=== PATIENT | female | born 1965 | race Caucasian/White ===

== ENCOUNTER → 2021-07-30 | Outpatient (CLI) | payer BC ==
--- NOTE | 2021-07-31 06:00 | MR ---
EXAMINATION TYPE: MR shoulder LT wo con DATE OF EXAM: 07/30/2021 COMPARISON: None HISTORY: L shoulder pain Multiplanar multiecho imaging of the left shoulder with no contrast. The biceps tendon is intact. Subscapularis tendon is intact. Glenoid kayley appear intact. The glenohu meral joint is anatomic. There is small amount of fluid in the subdeltoid bursa. There is some mild e ej in the supraspinatus tendon near the attachment on the greater tuberosity. There is no retractio n. Humeral head is intact. I see no focal bone destruction. IMPRESSION: No evidence of full-thickness rotator cuff tear. There is some mild increased signal in the tendon at the attachment consistent with partial tear and tendinitis. Mild subdeltoid fluid consistent with bu rsitis.
== END | disposition home or self-care (01) ==
LOC: RADMRIMAIN 12:45
PROVIDERS: ATTEND Orthopaedic Surgery
DX: M25.512 Pain in left shoulder (principal)

== ENCOUNTER → 2021-10-21 | Outpatient (CLI) | payer BC ==
[2021-10-21 17:19] LABS: Basophils % (A) 1 %; Eosinophils # (A) 0.1 k/uL (0-0.7); Eosinophils % (A) 1 %; HCT 35.2 % (34.0-46.0); HGB 11.3 gm/dL (11.4-16.0); Lymphocytes # (A) 1.5 k/uL (1.0-4.8); Lymphocytes % (A) 20 %; MCH 29.8 pg (25.0-35.0); MCHC 32.1 g/dL (31.0-37.0); MCV 92.9 fL (80.0-100.0); Mean Platelet Volume 7.2; Monocytes # (A) 0.3 k/uL (0-1.0); Monocytes % (A) 4 %; Neutrophils # (A) 5.7 k/uL (1.3-7.7); Neutrophils % (A) 73 %; Platelet Count 285 k/uL (150-450); RBC 3.79 m/uL (3.80-5.40); WBC 7.8 k/uL (3.8-10.6)
[2021-10-21 17:29] LABS: Potassium 4.6 mmol/L (3.5-5.1)
== END | disposition home or self-care (01) ==
LOC: LABPAT 14:46
PROVIDERS: ATTEND Orthopaedic Surgery
DX: Z01.818 Encounter for other preprocedural examination (principal)
CPT/HCPCS: 36415; 80051; 85025; 93005

== ENCOUNTER 2021-10-23 05:59 | Day surgery (SDC) | payer BC ==
[2021-10-22 11:58] VITALS: BMI 22.2
--- NOTE | 2021-10-22 19:56 | HP ---
HISTORY AND PHYSICAL DATE OF SURGERY: 10/23/2021 Bianka Griffith is a 56-year-old patient seen with progressive left shoulder pain. We discussed options for treatment. She elected to proceed with arthroscopy. Consent was obtained. PAST MEDICAL HISTORY: Noncontributory. PAST SURGICAL HISTORY: Noncontributory. DAILY MEDICATIONS: None. ALLERGIES: NONE REPORTED. SOCIAL HISTORY: She denies current tobacco use. PHYSICAL EVALUATION OF THE LEFT SHOULDER: Flexion is 90 degrees, abduction is 50 degrees. External rotation is 40 degrees with pain and significant weakness. Tenderness along the anterolateral acromion and rotator cuff insertion. Impingement positive at 80. Drop-arm sign is positive. Cross-body adduction sign is positive. Distal neurovascular exam intact. Left shoulder radiographs revealed a type 3 acromion as well as a lateral downsloping acromion. MRI left shoulder revealed partial rotator cuff tear. IMPRESSION: Left shoulder impingement and partial rotator cuff tear. PLAN: Left shoulder arthroscopy with subacromial decompression, possible arthroscopic rotator cuff repair and debridement. MMODL / IJN: [id number] /
[~2021-10-23 05:59] MED LIST: DEXAMETHASONE SOD PHOSPHATE 4 MG/ML 1 ML VIAL IV ONE; LACTATED RINGERS 1,000 ML IV SCH; LIDOCAINE 1% (10MG/ML) FOR IV START INTRADERMA PRN; MIDAZOLAM 2 MG/2 ML VIAL IV PRN; ONDANSETRON 4 MG/2 ML VIAL IVP ONE
[2021-10-23 06:37] LABS: Glucose,Whole Blood 93 mg/dL (75-99)
[2021-10-23] MEDS ORDERED: HYDROmorphone 0.5 MG/0.5 ML SYRINGE IVP PRN (07:00)
[2021-10-23] MEDS ORDERED: MIDAZOLAM 2 MG/2 ML VIAL IVP ONE (07:01)
[2021-10-23] MEDS ORDERED: fentaNYL (PF) 50 MCG/ML 5 ML AMP IVP ONE (07:10)
[2021-10-23] MEDS ORDERED: SUCCINYLCHOLINE CHLORIDE 100 MG/5 ML SYR IV ONE (08:08)
[2021-10-23] MEDS ORDERED: LIDOCAINE 1% INJ 10MG/ML (20 ML MDV) ONE (08:08)
[2021-10-23] MEDS ORDERED: ePHEDrine 50 MG/ML 1 ML AMP ONE (08:08)
[2021-10-23] MEDS ORDERED: PHENYLEPHRINE-0.9% NACL SYG 1,000 MCG/10 ML SYRINGE ONE (08:08)
[2021-10-23] MEDS ORDERED: ROPIVACAINE 5 MG/ML 30 ML VIAL ONE (08:08)
[2021-10-23] MEDS ORDERED: MIDAZOLAM 2 MG/2 ML VIAL ONE (08:08)
[2021-10-23] MEDS ORDERED: PROPOFOL 10 MG/ML 20 ML VIAL IV ONE (08:08)
[2021-10-23] MEDS ORDERED: DEXAMETHASONE SOD PHOSPHATE 4 MG/ML 1 ML VIAL ONE (08:08)
[2021-10-23] MEDS ORDERED: .fentaNYL (PF) 50 MCG/ML 2 ML AMP ONE (08:08)
[2021-10-23] MEDS ORDERED: LACTATED RINGERS 1,000 ML IV ONE (09:22)
--- NOTE | 2021-10-23 09:38 | P.OP ---
Date of Procedure: 10/23/21 Preoperative Diagnosis: Left shoulder impingement Postoperative Diagnosis: 1. Left shoulder rotator cuff tear 2. Left shoulder impingement Procedure(s) Performed: 1. Left shoulder arthroscopic rotator cuff repair 2. Left shoulder arthroscopic subacromial decompression Implants: 15.5 Arthrex swivel lock anchor Anesthesia: GETA, regional (Interscalene block), local Surgeon: Alec Russ Coater Smoking Pipe #1: Keven Rivera Estimated Blood Loss (ml): 8 Pathology: none sent Condition: stable Disposition: PACU Indications for Procedure: 56-year-old patient seen with progressive left shoulder pain. After having treatment options discussed, she elected to proceed with arthroscopy. Operative Findings: See description of procedure Description of Procedure: Patient underwent an interscalene block by department of anesthesia. The patient was then taken to the operative suite. The patient underwent a general anesthetic by the department of anesthesia. The patient was placed into a lateral position and secured. There was appropriate padding of the bony prominence. Left shoulder was then prepped and draped in normal sterile orthopedic fashion. We placed the extremity in 10 pounds of longitudinal traction. A posterior incision was now made for a posterior working portal site. The trocar and cannula were inserted into the glenohumeral joint. Arthroscopy was initiated. Spinal needle was now inserted anteriorly, to ascertain the anterior working portal site. An incision was now made in that area, a trocar was inserted followed by a probe. There were some mild grade 1 chondromalacia changes of the glenohumeral joint. The labrum was probed and found to be stable. The biceps was stable. Instruments were now removed from glenohumeral joint. Utilizing the posterior working portal site, the trocar and cannula were inserted into the subacromial space. Arthroscopy initiated. I made an incision 2 fingerbreadths lateral to the acromion. I introduced my trocar followed by my ArthroCare ablator. I now began ablating thick subacromial bursal tissue, which exposed the undersurface of the anterior acromion. There was diminished subacromial space. There was a very prominent anterior acromion. A motorized bur was introduced and a subacromial decompression was performed. I also excised some osteophytes off the inferior aspect of the distal clavicle. The AC joint was visualized and noted to be moderately arthritic, not enough to warrant a Jordan procedure. I turned my attention to the rotator cuff. There was a 1 cm tear along the posterior aspect of the distal supraspinatus. I debrided the margins getting down to stable tendon tissue. The defect measured 1.5 cm. I abraded the footprint with a motorized bur. With the assistance of Keven GTZ I passed 3 everted mattress sutures through good bites of rotator cuff tendon. I punched a hole in the footprint for insertion of an anchor. All 6 limbs of suture were passed through the eyelet of a 5.5 Arthrex swivel lock anchor. I now placed the eyelet into the pre-punch hole. I held it in position while Keven GTZ tension all suture limbs and deployed the anchor with good fixation noted. All residual suture limbs were now clipped. We had good compression of the tendon along the entire footprint. Instruments now removed from the portal sites. All portal sites were approximated with nylon suture. Sterile dressings were applied followed by a shoulder sling. Keven GTZ assisted in this case. The patient was awakened, transferred to a bed, and taken to recovery in stable condition.
[2021-10-23 09:44] VITALS: TEMP 96.8
[2021-10-23 09:49] LABS: Glucose,Whole Blood 125 mg/dL (75-99)
[2021-10-23 10:52] VITALS: RESP 16
[2021-10-23 11:08] VITALS: BP 111/72; PULSE 68
--- NOTE | 2021-10-24 18:51 | P.ANPRN ---
Procedure Note - Anesthesia - Nerve Block Performed Left Interscalene Single Time Out Performed: Yes Date of Procedure: 10/23/21 Procedure Start Time: 07:00 Procedure Stop Time: 07:11 Location of Patient: PreOp Indication: Acute Post-Operative Pain, Requested by Surgeon Sedation Type: Sedate with meaningful contact maintained Preparation: Sterile Prep Position: Supine Needle Types: Pajunk Needle Gauge: 21 Ultrasound used to visualize needle placement: Yes Ultrasound used to observe medication spread: Yes Blood Aspirated: No Pain Paresthesia on Injection Noted: No Resistance on Injection: Normal Image Stored and Saved: Yes Events: Uneventful and Well Tolerated (ropi ,5% 20cc plus dexamethasone 4mg)
== END 2021-10-23 11:27 | disposition home or self-care (01) ==
LOC: OR 05:59
PROVIDERS: ATTEND Orthopaedic Surgery
DX: M75.102 Unspecified rotator cuff tear or rupture of left shoulder, not specified as traumatic (principal); K21.9 Gastro-esophageal reflux disease without esophagitis; Z79.84 Long term (current) use of oral hypoglycemic drugs; Z79.899 Other long term (current) drug therapy; E11.9 Type 2 diabetes mellitus without complications
CPT/HCPCS: 64415; 76942; 29827; 29826; C1713; J2250; J1100; J0690; J2405; J2001; J3010 ×2; J2795; J2370; J0330; J2704

== ENCOUNTER → 2022-02-12 | Outpatient (CLI) | payer BC ==
--- NOTE | 2022-02-12 13:55 | EEG ---
ELECTROENCEPHALOGRAM REPORT DATE OF SERVICE: 02/12/2022. CLINICAL HISTORY: This is a 57-year-old woman with reported syncopal episodes. The video EEG was obtained to evaluate for seizure epileptiform activity. EEG TYPE: A routine 21-channel EEG was performed with video using the 10/20 electrode placement system. Relevant medication: Gabapentin, tempazepam, according to the medical record. DESCRIPTION: Wakefulness was only obtained. During awake state the posterior-dominant rhythm consists of low to moderate voltage of 8 to 8.5 hertz activity that was well modulated and well sustained. There was no physiological sleep architecture seen. There was no focal slowing. Interictal and ictal: None. ACTIVATION PROCEDURE: Photic stimulation did not evoke a posterior driving response. There was no abnormality during the photic stimulation. Hyperventilation was not performed. CLINICAL INTERPRETATION: This was a normal routine EEG. There was no focal slowing, epileptiform discharges or seizure on the EEG. Clinical correlation is recommended. If there continues to be any concern for seizures, recommend ambulatory EEG (2.5 hour EEG). MMAMA / DAVIDN: [id number] / ETHAN
== END ==
LOC: NEUROMAIN 10:00
PROVIDERS: ATTEND Family Medicine
DX: R55 Syncope and collapse (principal); R53.83 Other fatigue; R53.1 Weakness
CPT/HCPCS: 95816

== ENCOUNTER → 2022-03-20 | Outpatient (CLI) | payer BC ==
--- NOTE | 2022-03-20 12:46 | CONS ---
CONSULTATION DATE OF SERVICE: 03/20/2022 57-year-old lady has been evaluated in [facility] for excessive daytime sleepiness and multiple awakenings from sleep with occasional snoring. HISTORY OF PRESENT ILLNESS SLEEP-WAKE EVALUATION: SLEEP SCHEDULE: Patient's usual sleep schedule from midnight until 9 a.m. FALLING ASLEEP: No problems with falling asleep. No TV in bedroom. DURING SLEEP: The patient wakes up from sleep 3 times with one episode of nocturia. According to her , she snores. No witnessed episodes of stopped breathing during sleep. Positive history of restless leg symptoms. The patient is seeing significant amount of dreams and sometimes started to see dreams right after falling asleep. DURING THE DAY/SLEEP WAKE EVALUATION: Usually she does not take any naps but feel sleepiness during the day. [place] Sleepiness Scale is 12. According to patient, she feels sleepiness for many years. PAST MEDICAL HISTORY: Positive for episodes of passing out. Usually it is not reacted to strong emotions. The patient does not lose consciousness. No clear falling blood pressure during these episodes. History of depression, anxiety, acid reflex. PAST SURGICAL HISTORY: Tonsillectomy. MEDICATIONS: Omeprazole 40 mg twice a day, topiramate 50 mg twice a day, duloxetine 30 mg 3 capsules a day, risperidone 1 tablet a day, metformin 500 mg once a day. Temazepam 30 mg once a day. Trazodone 150 mg once a day. Gabapentin 800 mg 4 times a day. FAMILY HISTORY: Asthma, hypertension, cancer, mental illness. REVIEW OF SYSTEMS: Multiple awakenings from sleep, sleepiness during the day. PHYSICAL EXAMINATION: GENERAL: lady without distress. BP 102/65, HR 79, RR 14, height 5 feet 8-1/4 inches, weight 164.6 pounds, body mass index 24.7, temperature 97.3, oxygen saturation at room air 97%. Oropharynx: Low position of soft palate, Mallampati 3-4. NECK: 14-1/2 inches in circumference. Neck: Supple, no JVD. Thyroid is not palpable. LUNGS: Clear to percussion and to auscultation. Good air exchange. No wheezing or rhonchi. HEART: S1, S2 regular. No murmurs, gallops, or rubs. ABDOMEN: Soft and nontender. Bowel sounds are present. No organomegaly appreciated. EXTREMITIES: No clubbing or cyanosis. SUPPLY CHAIN SPECIALIST: Awake, alert, and oriented X3. Cranial nerves 2 to 7 intact. There is no fasciculation or atrophy. noted. No focal deficits observed. IMPRESSION: 1. Snoring, multiple awakenings from sleep, low position of soft palate, sleepiness during the day. [place] Sleepiness Scale is 12. Possible obstructive sleep apnea- hypopnea syndrome. 2. Sleepiness and tiredness, although patient does not take any naps. [place] Sleepiness Scale increased to 12. Episodes of passing out which is not clearly related to the strong emotions although the differential diagnosis should include hypersomnia and narcolepsy. The patient complains from sleepiness for many years. Episodes of passing out may represent cataplexy episodes, but again no relationship with strong emotions. 3. History of depression. 4. History of anxiety. 5. Acid reflux. 6. Status post tonsillectomy. PLAN: 1. Polysomnography for evaluation of patient breathing during sleep to check for possible periodic limb movements. 2. Following plan after reviewing results of sleep study. If she will be positive for obstructive sleep apnea, then we will treat obstructive sleep apnea-hypopnea syndrome. If she will be negative, we will consider multiple sleep latency test for objective evaluation of her symptoms of excessive daytime sleepiness. 3. No driving if feeling sleepiness. 4. Sleep hygiene with regular time in bed for at least 7.5 hours. Thank you very much for referring this patient for consultation. Sincerely, Kingsley Trejo MD, PhD, FAASM Diplomat of [place] [employer] Sleep Medicine Board of [place] [employer] Food Assembler [facility] [place] MMODL / DAVIDN: [id number] /
== END ==
LOC: SLEEP 11:29
PROVIDERS: ATTEND Internal Medicine
DX: R40.0 Somnolence (principal); R06.83 Snoring; F32.A Depression, unspecified; F41.9 Anxiety disorder, unspecified; Z90.09 Acquired absence of other part of head and neck
CPT/HCPCS: 99211

== ENCOUNTER → 2024-10-17 | Outpatient (CLI) | payer BC ==
--- NOTE | 2024-10-17 14:57 | MR ---
EXAMINATION TYPE: MR shoulder RT wo con DATE OF EXAM: 10/17/2024 11:46 AM COMPARISON: None. CLINICAL INDICATION: Female, 59 years old with history of M25.511 R shoulder pain, Rt shoulder pain IV Contrast: cc (None if empty) TECHNIQUE: Multiplanar, multisequence imaging of the right shoulder is performed without contrast. FINDINGS: There is mild osteoarthritic change of the AC joint. There is a small subacromial spur resulting in m ild shoulder impingement. There is diffuse abnormal signal intensity within the supraspinatus tendon consistent with marked ten dinosis and multiple intrasubstance tears. There is a tear extending to the inferior surface of the t endon. There is no retraction of the musculotendinous junction. The infraspinatus and subscapularis tendons are intact. There is diffuse abnormal signal intensity within the superior cartilaginous labrum consistent with a SLAP injury. This biceps anchor is intact. Biceps tendon is normal in signal intensity and position within the bicipital groove. There is a small glenohumeral joint effusion. There is mild subdeltoid and subacromial bursitis. IMPRESSION: 1. Rotator cuff tears and tendinosis involving the supraspinatus tendon without retraction. 2 SLAP injury involving the superior cartilaginous labrum. 3. Small glenohumeral joint effusion. 4. mild shoulder impingement as described above. 5. Mild subacromial and subdeltoid bursitis. [facility], , 10/17/2024 2:55 PM
== END | disposition home or self-care (01) ==
LOC: RADMRIMAIN 11:14
PROVIDERS: ATTEND Orthopaedic Surgery
DX: M19.011 Primary osteoarthritis, right shoulder (principal); M67.813 Other specified disorders of tendon, right shoulder; M25.411 Effusion, right shoulder; M25.811 Other specified joint disorders, right shoulder; M75.51 Bursitis of right shoulder

== ENCOUNTER 2024-12-21 05:38 | Day surgery (SDC) | payer BC ==
[2024-12-15 10:17] VITALS: BMI 22.8
--- NOTE | 2024-12-20 23:17 | HP ---
HISTORY AND PHYSICAL Her surgery is scheduled for 12/21/2024. HISTORY OF PRESENT ILLNESS: Bianka Griffith is a 59-year-old patient, seen with progressive right shoulder pain. We discussed options. She elected to proceed with arthroscopy. Consents obtained. Preoperative medical clearance was provided by Dr. Rico. PAST MEDICAL HISTORY: Hypertension, anc-vvtpbbp-oezwnphow diabetes, and gastroesophageal reflux disease. PAST SURGICAL HISTORY: Left shoulder arthroscopy. DAILY MEDICATIONS: 1. Omeprazole. 2. Restoril. 3. Neurontin. 4. Trazodone. 5. Metformin. ALLERGIES: None reported. SOCIAL HISTORY: She denies tobacco use. PHYSICAL EVALUATION OF THE RIGHT SHOULDER: Flexion is 100 degrees. Abduction is 70 degrees. External rotation is 30 degrees with pain and weakness. She has tenderness along the anterolateral acromion rotator cuff insertion site. Impingement sign is positive 90 degrees. Cross-body adduction sign is positive. Drop-arm sign is positive. Distal neurovascular exam is intact. IMAGING STUDIES: Right shoulder radiographs revealed a type 2 acromion, acromioclavicular joint osteoarthritis, cystic changes of the greater tuberosity. MRI right shoulder revealed rotator cuff tear, SLAP tear, impingement. IMPRESSION: 1. Right shoulder impingement with rotator cuff tear. 2. Right shoulder acromioclavicular joint osteoarthritis. 3. Right shoulder labral tear. 4. Lmr-uimrpep-mxxsclvut diabetes. PLAN: Right shoulder arthroscopy with subacromial decompression, rotator cuff repair, Jordan procedure, labeled debridement versus repair. MMODL / IJN: [id number] /
[~2024-12-21 05:38] MED LIST changes: +HYDROmorphone 0.5 MG/0.5 ML SYRINGE IVP PRN; -LIDOCAINE 1% (10MG/ML) FOR IV START INTRADERMA PRN; -MIDAZOLAM 2 MG/2 ML VIAL IV PRN; +fentaNYL (PF) 50 MCG/ML 2 ML AMP IV PRN
[2024-12-21] MEDS: IV FLUID CONTINUATION 1,000 ML IV ONE (06:45)
[2024-12-21] MEDS: MIDAZOLAM 2 MG/2 ML VIAL IVP ONE (06:54)
[2024-12-21 06:58] LABS: Glucose,Whole Blood 78 mg/dL (70-110)
[2024-12-21] MEDS: ONDANSETRON 4 MG/2 ML VIAL IVP ONE (07:00)
[2024-12-21] MEDS: DEXAMETHASONE SOD PHOSPHATE 4 MG/ML 1 ML VIAL IVP ONE (07:00)
[2024-12-21] MEDS ORDERED: ROPIVACAINE 5 MG/ML 30 ML VIAL ONE (07:21)
[2024-12-21] MEDS ORDERED: fentaNYL (PF) 50 MCG/ML 2 ML AMP ONE (07:21)
[2024-12-21] MEDS ORDERED: DEXAMETHASONE SOD PHOSPHATE 4 MG/ML 1 ML VIAL ONE (07:21)
[2024-12-21] MEDS ORDERED: LIDOCAINE 1% INJ 10MG/ML (20 ML MDV) ONE (07:21)
[2024-12-21] MEDS ORDERED: PROPOFOL 10 MG/ML 20 ML VIAL IV ONE (07:21)
[2024-12-21] MEDS ORDERED: MIDAZOLAM 2 MG/2 ML VIAL ONE (07:21)
[2024-12-21] MEDS ORDERED: SUCCINYLCHOLINE CHLORIDE 200 MG/10 ML VIAL IV ONE (07:21)
[2024-12-21 09:00] VITALS: RESP 16; TEMP 97
--- NOTE | 2024-12-21 09:03 | P.OP ---
Date of Procedure: 12/21/24 Preoperative Diagnosis: Right shoulder impingement Postoperative Diagnosis: 1. Right shoulder impingement 2. Right shoulder rotator cuff tear 3. Right shoulder partial long head biceps tendon tear 4. Right shoulder acromioclavicular joint osteoarthritis 5. Right shoulder superficial superior labral tear Procedure(s) Performed: 1. Right shoulder arthroscopic rotator cuff repair 2. Right shoulder arthroscopic subacromial decompression 3. Right shoulder arthroscopic biceps tenodesis 4. Right shoulder arthroscopic Jordan procedure 5. Right shoulder arthroscopic debridement labral tear Implants: 1Arthrex 4.75 swivel lock anchor 1Arthrex 5.5 swivel lock anchor Anesthesia: GETA, regional (Interscalene block) Surgeon: Alec Russ Turn Machine Operator #1: Carlos Salinas Estimated Blood Loss (ml): 7 Pathology: none sent Condition: stable Disposition: PACU Indications for Procedure: 59-year-old patient seen with progressive right shoulder pain. After having treatment options discussed, she elected to proceed with arthroscopy. Operative Findings: See description of procedure Description of Procedure: Patient underwent an interscalene block by department of anesthesia. The patient was then taken to the operative suite. The patient underwent a general anesthetic by the department of anesthesia. The patient was placed into a lateral position and secured. There was appropriate padding of the bony prominence. Right shoulder was then prepped and draped in normal sterile orthopedic fashion. We placed the extremity in 10 pounds of longitudinal traction. A posterior incision was now made for a posterior working portal site. The trocar and cannula were inserted into the glenohumeral joint. Arthroscopy was initiated. Spinal needle was now inserted anteriorly, to ascertain the anterior working portal site. An incision was now made in that area, a trocar was inserted followed by a probe. There was some superficial tearing of the superior labrum. There was partial tearing and hyperemia long head biceps tendon. There was no significant chondromalacia present. I introduced the cannula through the anterior portal site. I debrided the superficial labral tear getting down to stable labral tissue. I now passed a loop and tack stitch to the biceps tendon and release her from the superior labral anchor. With the assistance of Braden GTZ partial hole at the interval for insertion of an anchor. The suture limb was passed through the eyelet of an Arthrex 4.75 swivel lock anchor. I placed the eyelet into the preplanned hole, held in position while Braden GTZ tensioned the suture and deployed the anchor with good fixation noted. The residual suture limb was clipped. We had a stable appearing biceps tenodesis. Instruments were now removed from the glenohumeral joint. Utilizing the posterior working portal site, the trocar and cannula were inserted into the subacromial space. Arthroscopy initiated. I made an incision 2 fingerbreadths lateral to the acromion. I introduced my trocar followed by my ArthroCare ablator. I now began ablating thick subacromial bursal tissue, which exposed the undersurface of the anterior acromion. There was diminished subacromial space. There was a very prominent anterior acromion. A motorized bur was introduced and a subacromial decompression was performed. I also excised some osteophytes off the inferior aspect of the distal clavicle. The AC joint was visualized and noted to be fairly arthritic. The motorized bur was introduced in the anterior portal site and a Jordan procedure was performed without difficulty, decompressing the AC joint nicely. I turned my attention to the rotator cuff. There was a 1 cm rotator cuff tear. I debrided the margins getting down to stable tendon tissue. The defect/tear measured about 1.5 cm and was freely mobile over the footprint. I abraded the footprint with a motorized bur. With the assistance of Braden GTZ I passed 2 inverted mattress sutures through good bites of rotator cuff tendon. I punched a hole in the footprint area for insertion of an anchor. All 4 limbs of suture were passed through the eyelet of an Arthrex 5.5 swivel lock anchor. I placed the eyelet into the prepunch hole. I held in position while Braden GTZ tensioned the suture and deployed the anchor with good fixation noted. All residual suture limbs were now clipped. We had good compression of the tendon along the entire footprint. Instruments now removed from the portal sites. All portal sites were approximated with nylon suture. Sterile dressings were applied followed by a shoulder sling. Carlos GTZ assisted in this complex case. The patient was awakened, transferred to a bed, and taken to recovery in stable condition.
[2024-12-21 10:40] VITALS: BP 120/78; PULSE 79
--- NOTE | 2024-12-21 14:39 | P.ANPRN ---
Procedure Note - Anesthesia - Nerve Block Performed Right Interscalene Single Time Out Performed: Yes Date of Procedure: 12/21/24 Procedure Start Time: 06:53 Procedure Stop Time: 06:58 Location of Patient: PreOp Indication: Acute Post-Operative Pain, Requested by Surgeon Sedation Type: Sedate with meaningful contact maintained Preparation: Sterile Prep Position: Supine Needle Types: Pajunk Needle Gauge: 21 Ultrasound used to visualize needle placement: Yes Ultrasound used to observe medication spread: Yes Blood Aspirated: No Pain Paresthesia on Injection Noted: No Resistance on Injection: Normal Image Stored and Saved: Yes Events: Uneventful and Well Tolerated (Ropivacaine 0.5% 20 cc plus dexamethasone 4 mg)
== END 2024-12-21 11:34 | disposition home or self-care (01) ==
LOC: OR 05:38
PROVIDERS: ATTEND Orthopaedic Surgery
DX: S46.111A Strain of muscle, fascia and tendon of long head of biceps, right arm, initial encounter (principal); S43.491A Other sprain of right shoulder joint, initial encounter; M75.41 Impingement syndrome of right shoulder; M75.101 Unspecified rotator cuff tear or rupture of right shoulder, not specified as traumatic; M19.011 Primary osteoarthritis, right shoulder; G89.18 Other acute postprocedural pain; I10 Essential (primary) hypertension; E11.9 Type 2 diabetes mellitus without complications; K21.9 Gastro-esophageal reflux disease without esophagitis; F41.9 Anxiety disorder, unspecified; Z79.84 Long term (current) use of oral hypoglycemic drugs; Z79.899 Other long term (current) drug therapy; X58.XXXA Exposure to other specified factors, initial encounter
CPT/HCPCS: 29827; 29828; 29824; 29807; 64415; 29826; C1713 ×3; J2250; J0330; J1100; J0690; J2405; J2003; J3010; J2795; J2704

== ENCOUNTER → 2025-05-04 | Outpatient (CLI) | payer BC ==
--- NOTE | 2025-05-05 07:57 | MM ---
Reason for Exam: Screening (asymptomatic). Last mammogram was performed 11 year(s) and 3 month(s) ago. Patient History: Menarche at age 16. First Full-Term at age 26. Postmenopausal. Patient has history of breast feeding. Maternal grandmother had breast cancer at or over age 50. Mother had breast cancer at or over age 50. Risk Values: Evy 5 year model risk: 2.3%. NCI Lifetime model risk: 13.0%. Prior Study Comparison: 01/10/2014 Bilateral Screening Mammogram, [facility]. 02/07/2014 Right Diagnostic Mammogram, [facility]. Tissue Density: The breasts are heterogeneously dense, which may obscure small masses. Findings: Analyzed By CAD. Lateral asymmetric density on the right remains unchanged. There is no suspicious group of microcalcifications or new suspicious mass in either breast. Overall Assessment: Benign, BI-RAD 2 Management: Screening Mammogram of both breasts in 1 year. Patient should continue monthly self-breast exams. A clinical breast exam by your physician is recommended on an annual basis. This exam should not preclude additional follow-up of suspicious palpable abnormalities. Note on Evy scores and lifetime risk: 1. A Evy score greater than 3% is considered moderate risk. If this is the case, consider specialist referral to assess eligibility for a risk reducing agent. 2. If overall lifetime risk for the development of breast cancer is 20% or higher, the patient may qualify for future screening with alternating mammogram and breast MRI. [facility], , 05/05/2025 7:54 AM. Electronically signed and approved by: Eulogio Mcgraw M.D. Radiologist
== END | disposition home or self-care (01) ==
LOC: RADMAMWWP 11:29
PROVIDERS: ATTEND Family Medicine
DX: Z12.31 Encounter for screening mammogram for malignant neoplasm of breast (principal); R92.333 Mammographic heterogeneous density, bilateral breasts; Z78.0 Asymptomatic menopausal state; Z80.3 Family history of malignant neoplasm of breast
CPT/HCPCS: 77063; 77067